=== PATIENT | female | born 1955 | race Caucasian/White ===

== ENCOUNTER 2023-03-04 07:06 | Emergency (ER) | payer OTHER, MEDICARE ==
[2023-03-04 07:26] LABS: BASOPHILS ABSOLUTE AUTO 0.1 x10^3/uL (0.0-0.2); BASOPHILS PERCENT AUTO 0.5 % (0.2-1.2); EOSINOPHILS ABSOLUTE AUTO 0.2 x10^3/uL (0.0-0.5); EOSINOPHILS PERCENT AUTO 2.3 % (0.0-4.0); HEMATOCRIT 38.9 % (33.0-47.0); HEMOGLOBIN 13.2 g/dL (12.0-16.0); IMMATURE GRAN ABSOLUTE AUTO 0.02 x10^3/uL (0.00-0.07); LYMPHOCYTES ABSOLUTE AUTO 1.4 x10^3/uL (1.0-4.8); LYMPHOCYTES PERCENT AUTO 15.2 % (25.0-50.0); MEAN CORPUSCULAR HEMOGLOBIN 29.5 pg (26.0-32.0); MEAN CORPUSCULAR HGB CONC 33.9 g/dL (32.0-36.0); MEAN CORPUSCULAR VOLUME 86.8 fL (78.0-93.0); MONOCYTES ABSOLUTE AUTO 0.8 x10^3/uL (0.0-0.8); MONOCYTES PERCENT AUTO 8.4 % (2.0-11.0); NEUTROPHILS ABSOLUTE AUTO 6.9 x10^3/uL (1.8-7.7); NEUTROPHILS PERCENT AUTO 73.4 % (50.0-80.0); PLATELET COUNT,PLT 286 x10^3/uL (130-400); RED BLOOD CELL COUNT 4.48 x10^6/uL (4.00-5.50); WHITE BLOOD CELL COUNT,WBC 9.4 x10^3/uL (4.0-10.0)
[2023-03-04] MEDS: Sodium Chloride 0.9% 1,000 ML IV ONE (07:31)
[2023-03-04] MEDS: cefTRIAXone 1 GM Vial IVPUSH ONE (07:33)
[2023-03-04 07:56] LABS: A/G RATIO 0.88; ALBUMIN 3.7 g/dL (3.4-5.0); ANION GAP 16.3 mmol/L (5-15); BILIRUBIN TOTAL 0.5 mg/dL (0.2-1.0); C-REACTIVE PROTEIN 1.88 mg/dL (<=0.30); EST CRCL DRUG DOSING (CG) 44.36 mL/min; POTASSIUM,K 4.3 mmol/L (3.5-5.1); PROTEIN TOTAL,TP 7.9 g/dL (6.4-8.2)
[2023-03-04 08:18] LABS: CORONAVIRUS COVID-19 NAA NEGATIVE (NEGATIVE); INFLUENZA A NAA NEGATIVE (NEGATIVE); INFLUENZA B NAA NEGATIVE (NEGATIVE); RESPIRATORY SYNCYTIAL VIR NAA NEGATIVE (NEGATIVE)
[2023-03-04] MEDS: Acetaminophen 325 MG Tab PO ONE (08:29)
== END 2023-03-04 08:35 | disposition home or self-care (01) ==
LOC: VM.ED 07:06
DX: J20.9 Acute bronchitis, unspecified (principal); E78.00 Pure hypercholesterolemia, unspecified; I10 Essential (primary) hypertension; Z88.5 Allergy status to narcotic agent; Z79.899 Other long term (current) drug therapy; Z20.822 Contact with and (suspected) exposure to COVID-19
CPT/HCPCS: 0241U; 36415; 71046; 80053; 82550; 83605; 83615; 83880; 84145; 84484; 85025; 86140; 87040; 93005; 93010; 96374; 99284; 99285-25; A9270-GY; J0696; J7030